=== PATIENT | female | born 1990 | race Caucasian/White ===

== ENCOUNTER → 2018-01-04 | Outpatient (CLI) | payer OTHER | LOC: MRI 07:12 | DX: Z01.818 Encounter for other preprocedural examination (principal); D18.03 Hemangioma of intra-abdominal structures; D13.4 Benign neoplasm of liver ==

== ENCOUNTER → 2018-09-08 | Outpatient (CLI) | payer OTHER | LOC: ULTRA 14:17 | DX: E04.2 Nontoxic multinodular goiter (principal) ==

== ENCOUNTER → 2019-01-03 | Outpatient (CLI) | payer OTHER | LOC: ULTRA 15:09 | DX: N94.10 Unspecified dyspareunia (principal) ==

== ENCOUNTER → 2019-07-12 | Outpatient (CLI) | payer OTHER | LOC: ULTRA 13:17 | DX: Z34.81 Encounter for supervision of other normal pregnancy, first trimester (principal); Z3A.13 13 weeks gestation of pregnancy ==

== ENCOUNTER → 2019-08-10 | Outpatient (CLI) | payer OTHER | LOC: ULTRA 08:27 | DX: O26.892 Other specified pregnancy related conditions, second trimester (principal); R10.2 Pelvic and perineal pain; R16.0 Hepatomegaly, not elsewhere classified; Z3A.16 16 weeks gestation of pregnancy ==

== ENCOUNTER → 2020-01-22 | Outpatient (CLI) | payer OTHER | LOC: SJCVCIMAG 13:25 | PROVIDERS: ATTEND Internal Medicine Cardiovascular Disease | DX: R00.2 Palpitations (principal); R60.9 Edema, unspecified; I45.10 Unspecified right bundle-branch block ==